=== PATIENT | male | born 1955 | race Caucasian/White ===

== ENCOUNTER 2018-07-11 10:14 | Inpatient (IN) ==
--- NOTE | 2018-06-04 13:58 | PAT Medication Instructions ---
Medication Instructions Date of Service June 04, 2018 Home Medications amlodipine 5 mg PO QPM aspirin [Aspir-81] 81 mg PO QPM glucosamine-chondroitin [Osteo 2 tab PO QAM losartan-hydrochlorothiazide 1 tab PO QAM meloxicam 15 mg PO QPM multivitamin 1 cap PO QAM paroxetine HCl [Paxil] 30 mg PO QPM potassium chloride 10 meq PO QAM ASK your surgeon for instructions meloxicam 15 mg PO QPM STOP taking 2 weeks before surgery (or as soon as possible if surgery is within 2 weeks) glucosamine-chondroitin [Osteo 2 tab PO QAM DO NOT take the morning of surgery losartan-hydrochlorothiazide 1 tab PO QAM multivitamin 1 cap PO QAM potassium chloride 10 meq PO QAM Take evening before surgery amlodipine 5 mg PO QPM aspirin [Aspir-81] 81 mg PO QPM paroxetine HCl [Paxil] 30 mg PO QPM Other Notes If you have any questions please call us at [phone] or [phone] or [phone] or [phone]
--- NOTE | 2018-06-05 10:07 | Anesthesiology Consultation ---
Date of Service June 05, 2018 Assessment & Plan (1) Encounter for pre-operative examination: - PCP office visit= 06/10/18; addendum= Preop testing reviewed; "feel patient is acceptable risk for procedure w/o further CV workup." Chart Review Chart Review: Acceptable Risk for Surgery and Patient seen in Pre Admission Testing Teaching & Discussion Pre-Anesthesia Teaching/Discussion Notes: Instructed NPO after midnight before surgery,except medications with 15 cc of water. Medication instructions provided according to the PAT guidelines. History Surgery Operation Date: 06/27/18 08:15 Proposed Procedures p Right Total Hip Arthroplasty - Ed Lozano MD Height/Weight Height: 6 ft 2 in Weight: 103.4 kg Allergies Allergy/AdvReac Type Severity Reaction Status Date / Time No Known Allergies Allergy Verified 05/30/18 11:46 Medications Home Medications Medication Instructions Recorded Confirmed Last Taken amlodipine 5 mg PO QPM 05/30/18 05/30/18 Unknown aspirin [Aspir-81] 81 mg PO QPM 05/30/18 05/30/18 Unknown glucosamine-chondroitin [Osteo 2 tab PO QAM 05/30/18 05/30/18 Unknown Bi-Flex] losartan-hydrochlorothiazide 1 tab PO QAM 05/30/18 05/30/18 Unknown meloxicam 15 mg PO QPM 05/30/18 05/30/18 Unknown multivitamin 1 cap PO QAM 05/30/18 05/30/18 Unknown paroxetine HCl [Paxil] 30 mg PO QPM 05/30/18 05/30/18 Unknown potassium chloride 10 meq PO QAM 05/30/18 05/30/18 Unknown Past Medical History Medical History Anxiety Hypertension Osteoarthritis Past Surgical History Surgical History History of colonoscopy History of herniorrhaphy RIGHT INGUINAL History of open reduction and internal fixation (ORIF) procedure RIGHT HAND/FINGER History of tonsillectomy Past Anesthesia History No Hx of Anesthesia Complications and No Family Hx of Anesthesia Complications History of PONV No Motion Sickness Screening History of Motion Sickness: Yes (OCCASIONAL) Social History Smoking Status: Never smoker Do You Dip or Chew Tobacco: No Hx Alcohol Use: Yes Alcohol type: other alcohol intake frequency: a few times a week Hx Substance Use: No substance use type: does not use Exercise / Class Metabolic Activity III < 4 Walking/Shop/Light housework (USES CRUTCH PRN HIP PAIN) Review of Systems Occasional snoring. Patient denies chest pain, shortness of breath, cough, wheezing, palpitations. Physical Exam Vital Signs VITALS BP 142/84 P 65 TEMP 97.8 SP02 95%RA RESP 18 PHYSICAL Full neck and c-spine range of motion. Full TMJ range of motion. TMD 3 finger breaths Mallampati Score 3 Dentition: intact, crowns on molars Lungs: clear throughout to auscultation Cardiac: regular rate and rhythm, no murmurs noted Spine: normal Carotid arteries: negative bruit Extremities: no edema Testing Electrocardiogram Date: 06/05/18 NSR at 66bpm. Laboratory Results Blood Type O Positive 06/05/18 10:15 Antibody Screen NEGATIVE 06/05/18 10:15 06/06/18 WBC 6.6 H/H 14.2/40.8 PLATELETS 344 SODIUM 135 POTASSIUM 4.5 CHLORIDE 100 CO2 27 BUN 23 CREATININE 1.21 GLUCOSE 94 PT 10.7 PTT 30 INR 1.0 HGBA1C 5.2% UA negative bacteria URINE CULTURE no growth
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
--- NOTE | 2018-07-03 12:11 | History & Physical Report ---
Date of Service July 03, 2018 Assessment & Plan (1) Osteoarthritis of right hip: DIAGNOSIS: Right hip osteoarthritis. PROCEDURE: Right total hip arthroplasty. PLAN: The patient is scheduled to undergo this procedure with Dr. Ed Lozano as an inpatient in the [facility] on 07/11/2018. Risks and complications of the procedure such as infection, bleeding, pain, scarring, nerve and blood vessel damage, weakness, wound problems, stiffness, incomplete relief of symptoms, heart attack, stroke, , hardware failure, loosening, wear, fracture, dislocation, leg length inequality, blood clots and embolism were explained to the patient by Dr. Andrade at his visit today. Informed consent to perform this procedure was obtained. We will also obtain preoperative medical clearance from the patient's primary care provider, Dr. Ford. He states that he has an appointment with him next Sunday. His preanesthesia clearance testing is scheduled for later this morning. At that time, he will obtain a preoperative CBC with differential, complete metabolic panel, PT, INR, PTT, blood type and screen, urinalysis, urine culture, EKG, hemoglobin A1c, CRP, ESR and a nasal culture/swab for MRSA. I did provide the patient with an order to obtain a rolling walker. I instructed about purchasing a hip kit from either [facility] or [facility]. I advised him to stop his aspirin and anti-inflammatory medication 1 week prior to the procedure. During that time, I did provide a prescription for some hydrocodone to use to help him sleep at night. PDMP was checked and no red flags were raised that would prevent us from prescribing this medication. The patient will be scheduled for a 2-week postoperative followup with myself after being discharged from the hospital, but states that he will most likely do in home therapy once he discusses it with case management at the hospital. I advised the patient that I will prescribe him some narcotic pain medication upon discharge from the hospital along with an anti-inflammatory. I instructed him about the use of extra strength Tylenol and increasing his aspirin to twice daily for 30 days postoperatively for relief for DVT prophylaxis. I did provide the patient with some information regarding the procedure he will obtain. He states he will most likely come to [facility] for the bimonthly lectures. I went over the discharge planning packet with him. I provided him with paperwork for handicap placard to use for 6 months postoperatively. I advised him about antibiotic use after joint replacement surgery for dental procedures and cleanings. All questions provided by the patient and his were answered effectively. He verbalized understanding of all information provided during today's visit. Thanked us for the care they received and states that if they have questions or concerns that should arise prior to the procedure date, they will contact the clinic accordingly. History of Present Illness Chief Complaint: Right hip pain Primary Care Provider: Jeremy Ford MD HISTORY OF PRESENT ILLNESS: This 62-year-old male presents to clinic today for his preoperative history and physical. The patient was intially scheduled for a total Hip arthroplasty on 06/27/18, but surgery was cancelled due to complete collapse of his Right Femoral head. The patient complains of significant pain in his right hip since July 2017 that increased on 06/24/18 and has caused him to only be able ambulate with crutch assistance. The patient has faile conservative management with PT, steroid injection and use of NSAIDs. PAST SURGICAL HISTORY: Right inguinal hernia repair, vasectomy, right fifth finger open reduction and internal fixation, tonsillectomy/adenoidectomy. PAST MEDICAL HISTORY: Hypertension, anxiety, gastroesophageal reflux disease. FAMILY HISTORY: Positive for myocardial infarction, stroke and cancer. ALLERGIES: The patient has no known drug allergies. CURRENT MEDICATIONS: Amlodipine 5 mg tablet daily, aspirin 81 mg oral delayed release tablet 1 tab daily, potassium chloride 10 mEq daily, losartan 100 mg oral tablet 1 tab daily, meloxicam 15 mg oral tablet 1 tab daily, Men's 50+ one a day oral multivitamin 1 tab daily, Osteo Bi-Flex unknown dosage daily, Paxil 30 mg tablet daily. Tramadol 50 mg PO q 6 hrs prn pain. SOCIAL HISTORY: The patient denies a history of smoking or illicit drug use. States that he consumes approximately 5 alcoholic beverages per week. Allergies Allergy/AdvReac Type Severity Reaction Status Date / Time No Known Allergies Allergy Verified 05/30/18 11:46 Home Medications Home Medications Medication Instructions Recorded Confirmed Type amlodipine 5 mg PO QPM 05/30/18 05/30/18 History aspirin [Aspir-81] 81 mg PO QPM 05/30/18 05/30/18 History glucosamine-chondroitin [Osteo 2 tab PO QAM 05/30/18 05/30/18 History Bi-Flex] losartan-hydrochlorothiazide 1 tab PO QAM 05/30/18 05/30/18 History meloxicam 15 mg PO QPM 05/30/18 05/30/18 History multivitamin 1 cap PO QAM 05/30/18 05/30/18 History paroxetine HCl [Paxil] 30 mg PO QPM 05/30/18 05/30/18 History potassium chloride 10 meq PO QAM 05/30/18 05/30/18 History Past Med/Surg History Medical History Anxiety Hypertension Osteoarthritis Surgical History History of colonoscopy History of herniorrhaphy RIGHT INGUINAL History of open reduction and internal fixation (ORIF) procedure RIGHT HAND/FINGER History of tonsillectomy Social History Preferred Language: Setswana Communication Ability: Effective Tight Rope Walker Required: No Beliefs That Will Affect Care: None Current Living Situation: Spouse Other Information That Helps Us Care for You: No Feels Safe at Home: Yes Safety Concerns: Feels Safe At This Time Smoking Status: Never smoker Hx Alcohol Use: Yes Hx Substance Use: No Review of Systems All systems reviewed & are unremarkable except as noted in HPI & below Physical Exam Vital Signs (Past 24 Hours): PHYSICAL EXAMINATION: Skin: The patient's skin is normal in appearance. No open skin lesions or discharge. Eyes: Pupils are equal and react to light and accommodating. Extraocular movements are intact. Throat: Posterior oropharynx clear with absence of edema, erythema or exudate. Cardiovascular exam: The patient has a regular rate and rhythm with no murmurs or gallops appreciated. Lungs: Auscultation of lung rapp reveals clear breath sounds throughout, no wheezing, rales or rhonchi. Abdomen is nonobese, nondistended, nontender with normoactive bowel sounds. Extremities: Right hip, the patient is able to flex to 60 degrees, externally rotate to 20 degrees, internally rotate to 5 degrees. He has positive impingement scour on Stinchfield test. The patient has a positive log roll test and refers most of his pain over the anterior groin and posterolateral hip. Otherwise, he is neurovascularly intact in the right lower extremity, but does have notable atrophy of the quadriceps musculature. Neurologic exam: Cranial nerves II through XII are intact with no motor or sensory deficit. Psychological/general exam: The patient is alert and oriented x3 with proper grooming and hygiene. Code Status & VTE Plan VTE Prophylaxis Plan VTE Prophylaxis will be ordered: Yes
[~2018-07-11 10:14] MED LIST: ACETAMINOPHEN 500 MG TAB PO SCH; BUPIVACAINE 0.5 % 5 MG/1 ML PF 10ML VIAL ONE; CEFAZOLIN 2000MG 2,000 MG/15 ML SYR IV SCH; CHECK SCOPOLAMINE PATCH PLACEMENT SCH; CeleBREX 200 MG CAP PO SCH; FAMOTIDINE 20 MG TAB PO SCH; LR 15ML/HR IV SCH; LR 500ML BOLUS, THEN 15ML/HR IV SCH; LR 60ML/HR IV SCH; METOCLOPRAMIDE HCL 10 MG TABLET PO SCH; ROPIVACAINE 0.5% HCL/PF 150 MG, BUPIVACAINE 0.5% MPF 30 ML, EPINEPHrine 0.15 MG, Ketoro... INFIL SCH; SCOPOLAMINE 1.5 MG TDSY TD SCH; TRAMADOL HCL 50 MG TABLET PO SCH; TRANEXAMIC ACID 1,000 MG **IV Intra-op IV SCH; TRANEXAMIC ACID 1,000 MG **IV Pre-op IV SCH; dexAMETHasone 4 MG TAB PO SCH
[2018-07-11] MEDS ORDERED: MIDAZOLAM HCL 1 MG/ML 2ML VIAL ONE ×2 (10:26)
--- NOTE | 2018-07-11 11:28 | History & Physical Bridge Note ---
Date of Service July 11, 2018 History & Physical Bridge Note I have examined the patient, reviewed the History & Physical and in the interval since the performance of the History & Physical I have noted the following changes of clinical significance: no changes noted
[2018-07-11] MEDS ORDERED: ORTHO JOINT ANESTHETIC ONE (11:33)
[2018-07-11] MEDS ORDERED: POVIDONE-IODINE OP SOLN 30 ML BTL ONE (11:34)
[2018-07-11] MEDS ORDERED: fentaNYL citrate 100 MCG/2 ML VIAL IV PRN (11:47)
[2018-07-11] MEDS ORDERED: ONDANSETRON INJ 2 MG/ML 2 ML VIAL IV PRN ×2 (11:47→13:38)
[2018-07-11] MEDS ORDERED: ATROPINE SULFATE 0.1 MG/ML 10ML SYR IV PRN (11:47)
[2018-07-11] MEDS ORDERED: ePHEDrine sulfate 50 MG/ML AMP IV PRN (11:47)
[2018-07-11] MEDS ORDERED: PROPOFOL IV EMULSION 10 MG/ML 20 ML VIAL IV ONE (11:59)
[2018-07-11] MEDS ORDERED: PHENYLEPHRINE 100MCG/ML 5ML SYR ONE (12:00)
[2018-07-11] MEDS ORDERED: LIDOCAINE HCL 2% 2 ML VIAL/AMP(20MG/ML) INFIL ONE (12:18)
[2018-07-11] MEDS ORDERED: ePHEDrine sulfate 50 MG/ML AMP ONE (12:18)
[2018-07-11] MEDS ORDERED: PHENYLEPHRINE HCL 10 MG/ML VIAL ONE (12:29)
[2018-07-11] MEDS ORDERED: ONDANSETRON INJ 2 MG/ML 2 ML VIAL ONE (13:09)
[2018-07-11] MEDS ORDERED: METOCLOPRAMIDE HCL INJ 5 MG/ML 2 ML VIAL IV PRN (13:38)
[2018-07-11] MEDS ORDERED: BISACODYL 10 MG SUPP PR PRN (13:38)
[2018-07-11] MEDS ORDERED: DiphenhydrAMINE HCL 50 MG/ML VIAL IV PRN (13:38)
[2018-07-11] MEDS ORDERED: ALUMINUM/MAGNESIUM SUSP 30 ML UDC PO PRN (13:38)
[2018-07-11] MEDS ORDERED: TAMSULOSIN HCL 0.4 MG CAP PO PRN (13:38)
[2018-07-11] MEDS ORDERED: NALOXONE HCL 0.4 MG/1 ML VIAL/CARP IV PRN (13:38)
[2018-07-11] MEDS ORDERED: MAGNESIUM HYDROXIDE SUSP 30 ML UDC PO PRN (13:38)
--- NOTE | 2018-07-11 13:38 | Operative Report ---
Post Operative Report Pre & Post Diagnosis Operation Date: 07/11/18 12:00 Pre-Op Diagnosis: Right Hip Primary Osteoarthritis Post-Op Diagnosis: Right Hip Primary Osteoarthritis Procedure Operation Date: 07/11/18 12:00 Actual Procedures p Right Total Hip Arthroplasty--Uncemented(Right) - Ed Lozano MD Surgeon Ed Lozano MD Orderly JAYY Spence PA-C Estimated Blood Loss 100 Findings Consistent with Post-Op Diagnosis Specimens femoral head Hip synovium Hip aspirate Complications none Disposition Accompanied Patient To Recovery: Yes Disposition: Recovery Room Description of Procedure I was present during the entire case assisting with wound closure and dressing application. Please see Dr. Lozano procedure note for specifics of the case. I attest to the content of the Intraoperative Record and any orders documented therein. Any exceptions are noted below.
--- NOTE | 2018-07-11 14:01 | XRay Report ---
XR hip 1V RT w pelvis CLINICAL HISTORY: IN PACU - A/P PELVIS and LATERAL HIP COMPARISON: 06/26/2018 DISCUSSION: Anatomic alignment post total right hip arthroplasty. Good contact between prosthetic and underlying bone. No evidence for acetabular protrusion. There is no evidence for soft tissue swellin g. IMPRESSION: Anatomic alignment post total right hip arthroplasty. The above report was generated using voice recognition software. It may contain grammatical, syntax or spelling errors. Electronically signed by: Kt Harrison M.D. 07/11/2018 2:00 PM
--- NOTE | 2018-07-11 14:23 | Anesthesiology Progress Note ---
Date of Service July 11, 2018 Anesthesia Post Procedure Vital Signs Vital Signs: Temp Pulse Resp BP Pulse Ox 07/11/18 14:15 36.4 C L 92 H 18 118/70 99 07/11/18 14:05 36.4 C L 92 H 18 120/73 100 07/11/18 13:55 91 H 18 125/62 100 07/11/18 13:45 85 18 116/69 100 07/11/18 13:35 36.7 C 86 18 111/64 100 07/11/18 10:42 36.7 C 90 20 162/77 H 96 Notes Mental Status: alert / awake / arousable and participated in evaluation Nausea / Vomiting: adequately controlled Pain: adequately controlled Airway Patency, RR, SpO2: stable & adequate BP & HR: stable & adequate Hydration State: stable & adequate Neuraxial Anesthesia: was administered and sensory block is resolving Anesthetic Complications: no major complications apparent
[2018-07-11] MEDS: CHECK SCOPOLAMINE PATCH PLACEMENT SCH (15:39)
[2018-07-11] MEDS: LOSARTAN POTASSIUM 50 MG TAB PO SCH (16:00)
[2018-07-11] MEDS: hydroCHLOROthiazide 25 MG TAB PO SCH (16:01)
[2018-07-11] MEDS: SODIUM CHLORIDE 0.9% 1000ML 1,000 ML IV SCH (16:03)
[2018-07-11] MEDS: KETOROLAC TROMETHAMINE 15 MG/ML VIAL IV SCH ×2 (17:34→23:28)
[2018-07-11] MEDS ORDERED: TRANEXAMIC ACID 1,000 MG in 0.9 % SODIUM CHLORIDE 100 ML IV SCH (19:38)
[2018-07-11] MEDS: ASPIRIN 81 MG ECTAB PO SCH (20:17)
[2018-07-11] MEDS: DOCUSATE SODIUM 100 MG CAP PO SCH (20:17)
[2018-07-11] MEDS ORDERED: CeleBREX 200 MG CAP PO SCH (21:00)
[2018-07-11] MEDS ORDERED: ASPIRIN 81 MG ECTAB PO SCH (21:00)
[2018-07-11] MEDS ORDERED: SENNA 8.6 MG TAB PO SCH (21:00)
[2018-07-11] MEDS ORDERED: PARoxetine HCl 20 MG TAB PO SCH (21:00)
[2018-07-11] MEDS ORDERED: AMLODIPINE BESYLATE 5 MG TAB PO SCH (21:00)
[2018-07-11] MEDS: CEFAZOLIN 2000MG 2,000 MG/15 ML SYR IV SCH (22:44)
[2018-07-11] MEDS: ACETAMINOPHEN 500 MG TAB PO SCH (22:44)
--- NOTE | 2018-07-11 23:55 | Operative Report ---
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 POSTOPERATIVE DIAGNOSIS: Right hip osteoarthritis with avascular necrosis of the femoral head. OPERATION PERFORMED: Right total hip arthroplasty and right hip aspiration. SURGEON: Ed Lozano MD OWNER [employer]PA DIRECTOR: Eva Spence. ESTIMATED BLOOD LOSS: 100 mL INTRAVENOUS FLUIDS: 1200 mL crystalloid. SPECIMENS: 1. Right hip joint fluid sent for Gram stain, aerobic and anaerobic cultures. 2. Two tissue cultures, one from the bone of the femoral head and the second one the right hip synovium again sent for Gram stain and culture. COMPLICATIONS: None. IMPLANTS: 1. DePuy Gription, 60 mm outer diameter acetabular sector cup. 2. DePuy 6.5 x 45 mm cancellous bone screw. 3. Altrx polyethylene neutral liner for a 36-mm femoral head. 4. DePuy Aug[place] size 6 standard offset stem. 5. Biolox delta ceramic femoral head with a +8.5 mm offset. INDICATIONS: Mr. Cintron is a 62-year-old gentleman who has had right hip pain that has been refractory to conservative management. His x-rays when he was first evaluated in clinic showed a superior joint space narrowing. When he came in for his preoperative x-ray, this showed a collapse of his femoral head over a span of 2 months. We worked him up for concern of infection including inflammatory labs as well as a joint aspirate. His joint aspirate was sent 2 weeks ago and his cultures are all negative to date. His alpha defensin is negative. His cell count was also negative. I had a long discussion with him about the risks and benefits of surgery, alternatives to surgery and expected outcomes. After reviewing all these, he elected to proceed with surgery. All questions were answered. Informed consent was signed. OPERATIVE FINDINGS: There was minimal fluid within the hip joint. I was only able to aspirate approximately 3 mL of normal serous and bloody fluid. This was sent for Gram stain. The femoral neck cut was then made and bone from the femoral neck cut was sent for culture as well as synovial tissue lining. All 3 sets of cultures were sent for Gram stain, which came back negative intraoperatively. The gross appearance of the hip was consistent with avascular necrosis and did not appear infected. Therefore, a ceramic on polyethylene total hip arthroplasty was performed through a posterior approach. DESCRIPTION OF OPERATION: The patient was identified in the preoperative holding area where the surgical site was marked. He was given a spinal anesthetic then brought back to the main operating room where he was placed on the operating room table and then moved carefully into the lateral decubitus position. Axillary roll was placed. Sedation was administered. He was then prepped and draped in the normal sterile fashion. Prior to incision, a multidisciplinary timeout was called. All in the room were in agreement. We began by making a 14 cm incision for a posterior approach to the hip. We dissected through the subcutaneous tissues to the level of the fascia. The fascia was incised in line with the incision. A Charnley bow was placed. Short external rotators and quadratus femoris were dissected off the posterior aspect of the femur. A 20 mL syringe was used to aspirate fluid from the joint prior to entering the capsule. Again, there was minimal fluid within the joint. We then made a box cut in the capsule. The hip was dislocated. Again, the findings of the femoral head were consistent with avascular necrosis with collapse of the superior aspect of the femoral head. The femoral neck cut was made at our templated distance above the lesser trochanter approximately 10 mm. We then exposed the acetabulum. Fragments of synovium were sent off for culture. There were small fragments of cartilage that were included in this as well. Bone from the femoral neck cut was also sent for culture. We then excised the labrum sharply with a long handled knife. The contents of cotyloid fossa removed. We then reamed him up to a size 60 acetabular component. The acetabulum was then irrigated out. Again, there were no signs of infection. The Gription, 60 mm outer diameter cup was then impacted into position at 45 degrees of lateral opening and 25 degrees of anteversion. A single cancellous bone screw was placed up into the ilium. The polyethylene liner for a 36-mm femoral head was impacted into position, and the locking mechanism engaged. The femoral neck was then exposed. The lateral neck was removed with a roselineSteelBrick cutter. A lateralizing reamer was used followed by the intramedullary reamers. We reamed him up to a size 6 Aug[place]ize stem. We then broached him up to a size 6. This had excellent torsional stability. I then trialled him with a standard offset neck and a +1.5 head. He was short in his leg lengths. Therefore, I upsized him first to a +5 and then a +8.5 mm head. This demonstrated symmetric leg lengths. His shuck test was a bit tight; therefore I did not want to over lengthen him and cause a sciatic nerve palsy. He had no impingement with extension and external rotation. He was stable in the sleeper position. At 90 degrees of hip flexion, he could be internally rotated 45 degrees before leaving out of the cup. I was happy with the stability exam. Therefore, the trial components were removed from the femur. The canal was irrigated out and dried. The real size 6 Aug[place] femoral stem was impacted into the femur. It sat at the same level as the broach. We then opened up a 36 mm ceramic femoral head with a +8.5 mm offset. This was carefully impacted on the trunnion. The hip was atraumatically reduced. We then began to close. The wound was irrigated with Betadine. The periarticular injection cocktail was placed. We then closed the piriformis and short external rotators through drill holes in the posterior aspect of the greater trochanter. Fascia was run with looped PDS. The deep subcutaneous layer was closed with #1 PDS. 2-0 Vicryl was used for the deep dermis. A ZipLine was used for the skin. Silverlon dressing was placed followed by a compressive dressing. The patient's sedation was lifted and he was transferred to the hospital bed. He was then transferred to recovery room in stable condition. POSTOPERATIVE COURSE: The patient will be admitted to the hospital overnight for pain control and monitoring. He will be discharged home tomorrow. He will be on aspirin for DVT prophylaxis. We will continue to follow his cultures. He will receive 24 hours of perioperative antibiotics. I attest to the content of the Intraoperative Record and any orders documented therein. Any exception s are noted below.
[2018-07-12] MEDS: CHECK SCOPOLAMINE PATCH PLACEMENT SCH ×2 (00:53→08:26)
[2018-07-12] MEDS: OXYCODONE HCL IR 5 MG TAB (IMMEDIATE RELEASE) PO PRN ×2 (03:56→08:29)
[2018-07-12] MEDS: ACETAMINOPHEN 500 MG TAB PO SCH (05:23)
[2018-07-12] MEDS: KETOROLAC TROMETHAMINE 15 MG/ML VIAL IV SCH ×2 (05:23→11:16)
[2018-07-12] MEDS: CEFAZOLIN 2000MG 2,000 MG/15 ML SYR IV SCH (05:24)
[2018-07-12 05:43] LABS: Basophils # (auto) 0.02 K/uL (0-0.2); Basophils % (auto) 0.1 %; Hematocrit (blood only) 33.9 % (42-52); Hemoglobin 11.9 g/dL (14.0-18.0); Immature Granulocytes # (auto) 0.07 K/uL (0.00-0.02); Immature Granulocytes % (auto) 0.4 %; Lymphocytes # (auto) 0.94 K/uL (1.2-3.4); Lymphocytes % (auto) 5.1 %; Mean Corpuscular Hgb Conc 35.1 g/dL (32-36); Mean Corpuscular Volume 90.6 fL (80-100); Mean Platelet Volume 8.1 fL (7.4-10.4); Monocytes # (auto) 1.31 K/uL (0.11-0.59); Monocytes % (auto) 7.2 %; Neutrophils # (auto) 15.95 K/uL (1.4-6.5); Neutrophils % (auto) 87.2 %; Platelet Count 285 K/uL (130-400); RDW Coefficient of Variation 12.5 % (11.5-14.5); RDW Standard Deviation 41.8 fL (36.4-46.3); Red Blood Count 3.74 M/uL (4.7-6.1); White Blood Count 18.29 K/uL (4.8-10.8)
[2018-07-12] MEDS: SODIUM CHLORIDE 0.9% 1000ML 1,000 ML IV SCH (06:03)
[2018-07-12 06:12] LABS: BUN Creatinine Ratio 14.8 (10-20); Calcium 8.9 mg/dl (8.5-10.1); Creatinine Clr Calc Pharmacy 87.3 ml/min; Est GFR (African American) 90.9; Est GFR (Non-African American) 78.4; Potassium 3.8 mmol/L (3.5-5.1)
--- NOTE | 2018-07-12 07:35 | Anesthesiology Progress Note ---
Date of Service July 12, 2018 Anesthesia Post Procedure Vital Signs Vital Signs: Temp Pulse Pulse Pulse Resp BP Pulse Ox 07/12/18 03:07 36.8 C 86 16 133/75 98 07/11/18 23:00 36.8 C 75 16 130/73 97 07/11/18 17:46 36.6 C 84 19 138/73 97 07/11/18 17:33 36.6 C 86 18 119/69 97 07/11/18 16:30 36.5 C 84 19 123/73 98 07/11/18 15:42 36.8 C 17 117/69 96 07/11/18 15:05 36.6 C 90 18 121/76 98 07/11/18 14:35 37.1 C 93 H 18 115/71 100 07/11/18 14:15 36.4 C L 92 H 18 118/70 99 07/11/18 14:05 36.4 C L 92 H 18 120/73 100 07/11/18 13:55 91 H 18 125/62 100 07/11/18 13:45 85 18 116/69 100 07/11/18 13:35 36.7 C 86 18 111/64 100 07/11/18 10:42 36.7 C 90 20 162/77 H 96 Notes Mental Status: alert / awake / arousable and participated in evaluation Nausea / Vomiting: adequately controlled Pain: adequately controlled Airway Patency, RR, SpO2: stable & adequate BP & HR: stable & adequate Hydration State: stable & adequate
[2018-07-12] MEDS ORDERED: dexAMETHasone 4 MG TAB PO SCH (08:00)
[2018-07-12] MEDS: DOCUSATE SODIUM 100 MG CAP PO SCH (08:25)
[2018-07-12] MEDS: hydroCHLOROthiazide 25 MG TAB PO SCH (08:25)
[2018-07-12] MEDS: ASPIRIN 81 MG ECTAB PO SCH (08:25)
[2018-07-12] MEDS: LOSARTAN POTASSIUM 50 MG TAB PO SCH (08:26)
[2018-07-12] MEDS ORDERED: NON-FORMULARY MEDICATION (Multivitamin 1 CAP) PO SCH (09:00)
[2018-07-12] MEDS ORDERED: MULTIVITAMIN TAB PO SCH (09:00)
[2018-07-12] MEDS ORDERED: POTASSIUM CHLORIDE 10 MEQ TABCR PO SCH (09:00)
--- NOTE | 2018-07-12 11:37 | Orthopedic Progress Note ---
Date of Service July 12, 2018 Assessment & Plan (1) History of total right hip arthroplasty: Total hip precautions WBAT with walker assistance Did well with PT/OT today Ice with EZ wrap DVT prophylaxis with Aspirin and TEDs Pain control with PO meds In-home therapy [facility] F/u at [facility] in 2 wks. Subjective Patient is day 1 s/p Right total hip arthroplasty. Doing very well. No complaints. States that PT went very well this am and that he did 2 laps around the floor. Pt states that his pain is well controlled with the PO meds. He denies any drainage from his dressing. Denies CP, SOB, Nausea, vomiting, diarrhea, weakness or lethargy. Pt is ready to be discharge home. Review of Systems Review of Systems: All systems reviewed & are unremarkable except as noted in HPI & below Physical Exam Physical Exam: Right LE: able to easily perform SLRT. No pain with log roll or stinchfield test. No pain with very light interna and external rotation of LE. No dermatomal defict. NV intact. Calf soft and supple. Minimal tenderness to palpation over incision site. No drainage. Periph pulses easily palpable. Cap refill < 2 seconds. Results & Data Vital Signs (Past 12 Hours) Vital Signs Temp Pulse Pulse Resp BP Pulse Ox 07/12/18 11:23 36.9 C 84 78 19 143/73 H 97 07/12/18 07:52 36.9 C 78 19 143/73 H 97 07/12/18 03:07 36.8 C 86 16 133/75 98 Laboratory Results 07/12/18 07/12/18 07/12/18 Range/Units 05:31 05:31 05:31 WBC 18.29 H (4.8-10.8) K/uL RBC 3.74 L (4.7-6.1) M/uL Hgb 11.9 L (14.0-18.0) g/dL Hct 33.9 L (42-52) % MCV 90.6 (80-100) fL MCH 31.8 (25-34) pg MCHC 35.1 (32-36) g/dL RDW Std Deviation 41.8 (36.4-46.3) fL RDW Coeff of Helen 12.5 (11.5-14.5) % Plt Count 285 (130-400) K/uL MPV 8.1 (7.4-10.4) fL Immature Gran % (Auto) 0.4 % Neut % (Auto) 87.2 % Lymph % (Auto) 5.1 % Hyde % (Auto) 7.2 % Eos % (Auto) 0.0 % Baso % (Auto) 0.1 % Immature Gran # (Auto) 0.07 H (0.00-0.02) K/uL Neut # (Auto) 15.95 H (1.4-6.5) K/uL Lymph # (Auto) 0.94 L (1.2-3.4) K/uL Hyde # (Auto) 1.31 H (0.11-0.59) K/uL Eos # (Auto) 0.00 (0-0.5) K/uL Baso # (Auto) 0.02 (0-0.2) K/uL Sodium 133 L (136-145) mmol/L Potassium 3.8 (3.5-5.1) mmol/L Chloride 101 (98-107) mmol/L Carbon Dioxide 25 (21-32) mmol/L Anion Gap 8.0 (3-11) BUN 15 (7-18) mg/dl Creatinine 1.02 (0.6-1.4) mg/dl Est Cr Clr Drug Dosing 87.3 ml/min Est GFR ( Amer) 90.9 Est GFR (Non-Af Amer) 78.4 BUN/Creatinine Ratio 14.8 (10-20) Glucose 117 H (70-99) mg/dl Calcium 8.9 (8.5-10.1) mg/dl Hepatitis C Ab Screen Neg (Neg)
--- NOTE | 2018-07-12 12:01 | Discharge Summary ---
Date of Service July 12, 2018 Admission HPI Per Admitting Provider HISTORY OF PRESENT ILLNESS: This 62-year-old male presents to clinic today for his preoperative history and physical. The patient was intially scheduled for a total Hip arthroplasty on 06/27/18, but surgery was cancelled due to complete collapse of his Right Femoral head. The patient complains of significant pain in his right hip since July 2017 that increased on 06/24/18 and has caused him to only be able ambulate with crutch assistance. The patient has faile conservative management with PT, steroid injection and use of NSAIDs. PAST SURGICAL HISTORY: Right inguinal hernia repair, vasectomy, right fifth finger open reduction and internal fixation, tonsillectomy/adenoidectomy. PAST MEDICAL HISTORY: Hypertension, anxiety, gastroesophageal reflux disease. FAMILY HISTORY: Positive for myocardial infarction, stroke and cancer. ALLERGIES: The patient has no known drug allergies. CURRENT MEDICATIONS: Amlodipine 5 mg tablet daily, aspirin 81 mg oral delayed release tablet 1 tab daily, potassium chloride 10 mEq daily, losartan 100 mg oral tablet 1 tab daily, meloxicam 15 mg oral tablet 1 tab daily, Men's 50+ one a day oral multivitamin 1 tab daily, Osteo Bi-Flex unknown dosage daily, Paxil 30 mg tablet daily. Tramadol 50 mg PO q 6 hrs prn pain. SOCIAL HISTORY: The patient denies a history of smoking or illicit drug use. States that he consumes approximately 5 alcoholic beverages per week. Admission Exam Per Admitting Provider PHYSICAL EXAMINATION: Skin: The patient's skin is normal in appearance. No open skin lesions or discharge. Eyes: Pupils are equal and react to light and accommodating. Extraocular movements are intact. Throat: Posterior oropharynx clear with absence of edema, erythema or exudate. Cardiovascular exam: The patient has a regular rate and rhythm with no murmurs or gallops appreciated. Lungs: Auscultation of lung rapp reveals clear breath sounds throughout, no wheezing, rales or rhonchi. Abdomen is nonobese, nondistended, nontender with normoactive bowel sounds. Extremities: Right hip, the patient is able to flex to 95 degrees, externally rotate to 50 degrees, internally rotate to 5 degrees. He has positive impingement scour on Stinchfield test. ROLANDO test is 2-1/2 fists. The patient has a positive log roll test and refers most of his pain over the anterior groin. Otherwise, he is neurovascularly intact in the right lower extremity, but does have notable atrophy of the quadriceps musculature. Neurologic exam: Cranial nerves II through XII are intact with no motor or sensory deficit. Psychological/general exam: The patient is alert and oriented x3 with proper grooming and hygiene. Principal Diagnosis Right hip osteoarthritis Discharge Exam Right LE: able to easily perform SLRT. No pain with log roll or stinchfield test. No pain with very light interna and external rotation of LE. No dermatomal defict. NV intact. Calf soft and supple. Minimal tenderness to palpation over incision site. No drainage. Periph pulses easily palpable. Cap refill < 2 seconds. Discharge Data Allergies Allergy/AdvReac Type Severity Reaction Status Date / Time No Known Allergies Allergy Verified 07/11/18 10:35 Consultations 07/12/18 08:00 Consult Case Management - Discharge Planning Routine Procedures Performed Operation Date: 07/11/18 12:00 Actual Procedures p Right Total Hip Arthroplasty--Uncemented(Right) - Ed Lozano MD Hospital Course (1) History of total right hip arthroplasty: Patient did very well overnight without complaints. Pain is well controlled and he is ready to be discharged home. Total hip precautions WBAT with walker assistance Did well with PT/OT today Ice with EZ wrap DVT prophylaxis with Aspirin and TEDs Pain control with PO meds In-home therapy with [facility] (if not progressing with self care) F/u at [facility] in 2 wks. Total Time Total Time Spent Total Time Spent (In Minutes): 25 mins Total Time Includes: Examination of the Patient, Discharge Planning and Medication Reconciliation Discharge Plan Discharge Items Patient Disposition: Home - Self-Care Reason For Visit: Right Hip Osteoarthritis Discharge Diagnosis: Right hip osteoarthritis Discharge Goals: Decrease discomfort, Improve function and Increase independence Activity: As commented below Lifting: None Bathing: Keep incision dry Bathing Comment: May shower tomorrow Sexual Activity: Wait until after follow-up appointment Exercise/Sports: Wait until after follow-up appointment Driving/Machine Use Comment: No driving until cleared by orthropedic specialist Weightbearing Comment: as tolerated with walker assistance Non-emergency contact: Primary Care Provider Call non-emergency contact if: you have any medication questions, your pain is not controlled, your temperature is above 101.5, your wound has increased drainage and your wound pain has increased Follow-up/Referrals: Jeremy Ford MD [Primary Care Provider] - Diet: Regular Addtl Provider Instructions: Post-operative Instructions Dear Patient and Family/Friends, Before you are discharged from the hospital, it is important to know what to expect when you get home after surgery. To that end, we have created this sheet of discharge instructions which covers many commonly asked questions. Make sure you go through this sheet in its entirety with your nurse before you are discharged. Please note that we will go over the specifics of your surgery and recovery when you return for your first post-operative visit. Sincerely, Dr. Lozano Medications: You will be discharged on Oxycodone 5 mg for pain control. You may take 1-2 tabs by mouth every 4-6 hrs. You may take two extra strength Tylenol with every other dose of the Oxycodone. You will also be provided with a prescription for Diclofenac Sodium 75 mg to be used twice daily for 30 days post operatively for pain control. Also you will be on oral Aspirin 81 mg to be taken twice daily for 30 days post operatively to prevent blood clots/embolism. We will also prescribe and antibiotic: Keflex 500 mg to take 4 times daily for 5 days post operatively for infection prophylaxis. If you have any questions about these medications be sure to contact our clinic. Pain Expect to be in a fair amount of pain after surgery. Remember, our goal is not to eliminate your pain, but to make it tolerable. It is a good idea to stay ahead of your pain by taking the medications you were prescribed once you get home. Typically, the pain starts improving 3-7 days after surgery. You should start weaning off the narcotic pain medication (oxycodone, hydrocodone, hydromorphone, morphine) as soon as your pain improves. Please call our office if your pain is not adequately controlled. Ice Ice your operative site at least 5 times a day for 15-30 minutes at a time. Make sure you have a thin cloth between the ice or cooling unit and your skin to prevent knowles bite. This is especially important if you received a nerve block. Continue icing your operative site for the first 5-7 days after surgery, then as needed. Diet/Nausea/Vomiting Start by drinking clear liquids and eating crackers. If you can tolerate this, then you may resume your normal diet. If you feel nauseated or vomit, take Zo jasiel/ondansetron (if prescribed). Please call our office if you have intractable nausea or vomiting, or, if after hours, you may go to the Emergency Room for help. Constipation Constipation is a common side effect of narcotic pain medication. If you have not had a bowel movement within 2 days after surgery, we recommend purchasing an over the counter laxative such as Milk of Magnesia, Dulcolax, or Miralax from a local pharmacy, and taking it as instructed. Call our clinic if any questions. Nerve block The anesthesia team sometimes places a nerve block to help with post-operative pain control. This results in significant numbness and inability to move the extremity. The nerve block usually wears off in 8-12 hours, but sometimes can l ast up to 24 hours. Please call our office if you are still unable to move your extremity after 24 hours, unless you received a pain pump to take home. Nerve blocks typically wear off quickly, so start taking pain medication as soon as you start feeling soreness near your surgical site. Weight bearing and Range of Motion. Do not bear any weight through your operative extremity immediately after surgery. If you had upper extremity surgery, do not lift anything with that arm. If you are in a knee brace, keep it locked in place until your follow-up. We will discuss your weight bearing, range of motion, and lifting restrictions in detail at your first post-operative appointment. Continuous Passive Motion (CPM) Machine If you were prescribed a CPM machine, it will start after your first post- operative appointment, at which time we will give you instructions on the range of motion settings and duration of treatment Physical therapy You will be given a prescription for physical therapy or occupational therapy at your first post-operative appointment. Typically, patients start therapy within 1 week of surgery Wound care and showering We will inspect your wound at your first post-operative visit, and may do a dressing change at that time. Most patients will be in a water-proof dressing that is removed 14 days after surgery. It is normal to see some dried blood on the dressing. Do not remove your dressing, paper strips or sutures yourself unless you are given permission. Showering is allowed the day after surgery. Do not scrub or remove any dressings. The wound should not be submerged underwater (i.e. in a bathtub or pool) until 4 weeks after surgery JONNATHAN stockings If you were given white stockings, these are to be worn at all times except to shower (on both legs) for the first 2 weeks after surgery. Driving You may not drive while taking narcotic pain medication or while in a cast, splint, sling or brace. You, the patient, need to make the final determination about when you are safe to drive, however, the earliest you may consider driving after surgery is below: Hand/Wrist/Elbow Surgery: 3 days Shoulder Surgery: 2 weeks Hip,/Knee/Ankle Surgery: 4 weeks Fracture repair: 6 weeks Return to Work Your return to work depends on what surgery was done and what type of work you do. Please bring any paperwork your employer needs completed to your first post-operative visit. Also, bring a description of your job duties, as this helps us to understand what risks you may face at work. Travel Avoid long distance travel (greater than 1 hour) in airplanes and cars for the first 6 weeks after surgery. If you must travel, you need to have a Doppler ultrasound done before you travel to rule out a blood clot in your legs. Follow-up You should have a follow-up appointment already scheduled 1-2 days after surgery. If not, please contact our office to make this appointment before you leave the hospital. When to call the office It is normal to have swelling and bruising in the limb that was operated on. This will improve with time. It is also normal to have fevers for the first 2 days after surgery. Reasons you should call your doctor include: Uncontrolled pain; Nausea, vomiting, or constipation that does not improve with medication; Fevers over 101.5, chills, sweats; Drainage or bleeding from the wound; Foul odor; Spreading areas of redness; Any other concerns Prescriptions: New oxycodone 5 mg tablet 5 mg PO Q6H Qty: 30 RF: 0 diclofenac sodium 75 mg tablet,delayed release (DR/EC) 75 mg PO BID PRN (Reason: pain) Qty: 60 RF: 1 cephalexin [Keflex] 500 mg capsule 500 mg PO QID 5 Days Qty: 20 RF: 0 Continued potassium chloride 10 mEq Capsule, Extended Release 10 meq PO QAM RF: 0 amlodipine 5 mg Tablet 5 mg PO QPM RF: 0 aspirin [Aspir-81] 81 mg Tablet,Delayed Release (Dr/Ec) 81 mg PO QPM RF: 0 paroxetine HCl [Paxil] 30 mg Tablet 30 mg PO QPM RF: 0 multivitamin Capsule 1 cap PO QAM RF: 0 losartan-hydrochlorothiazide 100-12.5 mg Tablet 1 tab PO QAM RF: 0 tramadol 50 mg PO Q6 PRN (Reason: Pain) RF: 0 Tylenol 500 mg PO Q6 PRN (Reason: Pain) RF: 0 Stand-Alone Forms: [employer] [facility] [employer], Opioid Pain Management [facility]/Other Patient Handouts: Replacement Hip Total Discharge Orders: Discharge Order (Routine); Ordered 07/12/18 Ordered By: Harrison Spence Admission Data Admit Date/Time: 07/11/18 13:38 Attending Provider: Ed Lozano Admit Provider: Ed Lozano Primary Care Provider: Jeremy Ford Service: Surgical Services Other Interventions: Discharge Summary Assessment (RN) Last Done: 07/12/18 11:23 Pending Studies at Discharge: No DC Date/Time DO NOT enter until pt leaves facility: 07/12/18 12:00
== END 2018-07-12 12:00 | disposition home or self-care (01) | DRG 470 ==
LOC: ASU 10:14 → 3E 13:38
DX: M90.551 Osteonecrosis in diseases classified elsewhere, right thigh; Z79.82 Long term (current) use of aspirin; I10 Essential (primary) hypertension; F41.9 Anxiety disorder, unspecified; M16.11 Unilateral primary osteoarthritis, right hip; Z79.899 Other long term (current) drug therapy; Z79.1 Long term (current) use of non-steroidal anti-inflammatories (NSAID)